=== PATIENT | male | born 1940 | race Caucasian/White ===

== ENCOUNTER → 2017-03-27 | Outpatient (CLI) | payer MEDICARE ==
[~2017-03-27] MED LIST: AMLO10TA2 PO; ASPI325T4 PO; ATOR40TA78 PO; DOCU100T6 PO; FINA5TAB4 PO; GABA300C10 PO; TAMS0.4C2 PO; TRIA15CR53 TP; VARE1TAB21 PO
[2017-03-27 15:43] LABS: PATH.CAST-FLAG NOT PRESENT; SPERM-FLAG NOT PRESENT; SRC-FLAG NOT PRESENT; XTAL-FLAG NOT PRESENT; YLC-FLAG NOT PRESENT
[2017-03-27 15:44] LABS: BLOOD UREA NITROGEN 9 mg/dL (7-18)
[2017-03-27 15:48] LABS: ASPARTATE AMINO TRANSFERASE 16 U/L (15-37)
== END | disposition home or self-care (01) ==
LOC: STAR 14:34
PROVIDERS: ATTEND Urology
DX: Z01.818 Encounter for other preprocedural examination (principal); C67.9 Malignant neoplasm of bladder, unspecified
CPT/HCPCS: 36415; 80053; 81001; 85025; 85610; 85730; 87086; 93005

== ENCOUNTER 2017-04-10 11:46 | Day surgery (SDC) | payer MEDICARE ==
[~2017-04-10] VITALS: Ht 170.2 cm; Wt 59.1 kg
[2017-04-10] MEDS ORDERED: LACTATED RINGERS 1,000 ML IV SCH (12:10)
[2017-04-10 12:13] VITALS: BP 135/79
[2017-04-10] MEDS ORDERED: FENTANYL PF 100 MCG/2ML ONE (13:55)
[2017-04-10] MEDS ORDERED: ONDANSETRON 2MG/ML, 2ML ONE (13:59)
[2017-04-10] MEDS ORDERED: PROPOFOL 10 MG/ML, 20ML ONE (13:59)
[2017-04-10] MEDS ORDERED: CEFAZOLIN 1,000 MG ONE (13:59)
[2017-04-10] MEDS ORDERED: OXYcodone 5 MG/5 ML ORAL.SOL UDC PO PRN (14:30)
[2017-04-10] MEDS ORDERED: ONDANSETRON 2MG/ML, 2ML IVPush PRN (14:30)
[2017-04-10] MEDS ORDERED: hydrALAzine 20 MG/ML, 1ML IV PRN (14:30)
[2017-04-10] MEDS ORDERED: ACETAMINOPHEN 325 MG TABLET PO PRN (14:30)
[2017-04-10] MEDS ORDERED: HYDROmorphone 1 MG/ML, 1ML IV PRN (14:30)
[2017-04-10] MEDS ORDERED: LABETALOL 5MG/ML, 20ML IV PRN (14:30)
[2017-04-10] MEDS ORDERED: FENTANYL PF 100 MCG/2ML IV PRN (14:30)
[2017-04-10] MEDS ORDERED: GABAPENTIN 300 MG CAPSULE PO SCH (16:00)
[2017-04-10] MEDS ORDERED: TAMSULOSIN 0.4 MG CAP.ER.24H PO SCH (21:00)
[2017-04-10] MEDS ORDERED: ATORVASTATIN 40 MG TABLET PO SCH (21:00)
[2017-04-10] MEDS ORDERED: TRIAMCINOLONE CRM 0.5%, 15GM TP SCH (21:00)
[2017-04-11] MEDS ORDERED: FINASTERIDE 5 MG TABLET PO SCH (09:00)
== END 2017-04-10 16:45 | disposition home or self-care (01) ==
LOC: OUT 11:46
PROVIDERS: ATTEND Urology
DX: C67.8 Malignant neoplasm of overlapping sites of bladder (principal); I10 Essential (primary) hypertension; F17.210 Nicotine dependence, cigarettes, uncomplicated; Z98.890 Other specified postprocedural states; Z86.79 Personal history of other diseases of the circulatory system; Z95.820 Peripheral vascular angioplasty status with implants and grafts; I45.10 Unspecified right bundle-branch block; Z85.46 Personal history of malignant neoplasm of prostate; F31.9 Bipolar disorder, unspecified; M10.9 Gout, unspecified; Z80.52 Family history of malignant neoplasm of bladder; Z82.49 Family history of ischemic heart disease and other diseases of the circulatory system; Z82.3 Family history of stroke; Z84.1 Family history of disorders of kidney and ureter; Z72.89 Other problems related to lifestyle
CPT/HCPCS: 52235; 88305; J0690; J2405; J2704; J3010; J7120

== ENCOUNTER → 2017-08-21 | Outpatient (CLI) | payer MEDICARE ==
[~2017-08-21] MED LIST changes: +ASPI325T17 PO; -ASPI325T4 PO
[2017-08-21 15:28] LABS: WHITE BLOOD COUNT 9.2 x10^3/uL (3.4-10)
[2017-08-21 15:40] LABS: ASPARTATE AMINO TRANSFERASE 14 U/L (15-37); BLOOD UREA NITROGEN 11 mg/dL (7-18)
== END | disposition home or self-care (01) ==
LOC: STAR 14:01
PROVIDERS: ATTEND Urology
DX: Z01.818 Encounter for other preprocedural examination (principal); R94.31 Abnormal electrocardiogram [ECG] [EKG]; C67.9 Malignant neoplasm of bladder, unspecified; N52.01 Erectile dysfunction due to arterial insufficiency; I10 Essential (primary) hypertension; Z85.46 Personal history of malignant neoplasm of prostate
CPT/HCPCS: 36415; 80053; 81003; 85025; 87086; 93005

== ENCOUNTER 2017-09-04 11:46 | Day surgery (SDC) | payer MEDICARE ==
[2017-08-21 14:27] VITALS: BP 145/82
[~2017-09-04] VITALS: Ht 170.2 cm; Wt 61.3 kg
[2017-09-04] MEDS ORDERED: LACTATED RINGERS 1,000 ML IV SCH (12:24)
[2017-09-04] MEDS ORDERED: LISI-167 PO (12:27)
[2017-09-04] MEDS ORDERED: LIDOCAINE 1%, 2ML SQ PRN (12:30)
[2017-09-04] MEDS ORDERED: MIDAZOLAM 1 MG/ML, 2ML ONE (13:42)
[2017-09-04] MEDS ORDERED: FENTANYL PF 100 MCG/2ML ONE (13:42)
[2017-09-04] MEDS ORDERED: LIDOCAINE-MPF 2% ,5ML ONE (13:43)
[2017-09-04] MEDS ORDERED: PROPOFOL 10 MG/ML, 20ML ONE (13:43)
[2017-09-04] MEDS ORDERED: GENTAMICIN 80 MG/2 ML ONE (13:44)
[2017-09-04] MEDS ORDERED: CEFAZOLIN 1,000 MG ONE (13:44)
[2017-09-04] MEDS ORDERED: PHENYLEPHRINE 10 MG/ML ONE (14:10)
[2017-09-04] MEDS ORDERED: DEXAMETHASONE 4 MG/ML, 1ML ONE ×2 (14:19)
[2017-09-04] MEDS ORDERED: ONDANSETRON 2MG/ML, 2ML ONE (14:19)
[2017-09-04] MEDS ORDERED: PROMETHAZINE 25 MG/ML, 1ML IV PRN (14:30)
[2017-09-04] MEDS ORDERED: ONDANSETRON 2MG/ML, 2ML IVPush PRN (14:30)
[2017-09-04] MEDS ORDERED: ACETAMINOPHEN 325 MG TABLET PO PRN (14:30)
[2017-09-04] MEDS ORDERED: OXYcodone 5 MG/5 ML ORAL.SOL UDC PO PRN (14:30)
[2017-09-04] MEDS ORDERED: FENTANYL PF 100 MCG/2ML IV PRN (14:30)
[2017-09-04] MEDS ORDERED: MEPERIDINE/PF 25MG/0.5ML IVPush PRN (14:30)
[2017-09-04] MEDS ORDERED: LABETALOL 5MG/ML, 20ML IV PRN (14:30)
[2017-09-04] MEDS ORDERED: hydrALAzine 20 MG/ML, 1ML IV PRN (14:30)
[2017-09-04] MEDS ORDERED: HYDROmorphone 1 MG/ML, 1ML IV PRN (14:30)
[2017-09-04] MEDS ORDERED: MITOMYCIN 40 MG, WATER FOR INJECTION,STERILE 40 ML in SYRINGE 1 EA INTVESIC ONE (15:00)
[2017-09-04] MEDS ORDERED: ACETAMINOPHEN 650 MG/20.3 ML UDC ONE (15:15)
[2017-09-04] MEDS ORDERED: OXYcodone 5 MG/5 ML ORAL.SOL UDC ONE (15:15)
[2017-09-04] MEDS ORDERED: GABAPENTIN 300 MG CAPSULE PO SCH (16:00)
[2017-09-04] MEDS ORDERED: ATORVASTATIN 40 MG TABLET PO SCH (21:00)
[2017-09-04] MEDS ORDERED: TAMSULOSIN 0.4 MG CAP.ER.24H PO SCH (21:00)
[2017-09-05] MEDS ORDERED: LISINOPRIL 10 MG TABLET PO SCH (09:00)
[2017-09-05] MEDS ORDERED: FINASTERIDE 5 MG TABLET PO SCH (09:00)
== END 2017-09-04 18:25 ==
LOC: OUT 11:46
PROVIDERS: ATTEND Urology
DX: N32.89 Other specified disorders of bladder (principal); I10 Essential (primary) hypertension; E78.5 Hyperlipidemia, unspecified
CPT/HCPCS: 52224; 88305; J0690; J1100; J1580; J2250; J2370; J2405; J2704; J3010; J3490; J7120